=== PATIENT | male | born 1970 | race Two or more races ===

== ENCOUNTER → 2024-09-20 | Outpatient (CLI) | payer MEDICAID, SELFPAY ==
--- NOTE | 2024-09-20 08:00 | XR_ITS ---
Examination: CT left shoulder, without contrast. 2-D sagittal reconstructions. 2-D coronal reconstructions. 3-D reconstructions. Date and time of exam:September 20, 2024 at 0818 hours INDICATIONS: Softball injury to the shoulder 15 years ago, shoulder pain CTDI: vol (mGy):20.1 DLP: (mGycm):451 Technique: Multiple 1.25 mm axial sections of the left shoulder without intravenous contrast have been obtained. 2-D sagittal and coronal reconstructions have been obtained. 3-D reconstructions have been obtained. Low dose protocols were performed. One or more of the following dose reduction techniques were used; automated exposure control, adjustment of the mA and/or KV according to patient size, use of iterative reconstruction technique. Findings: Mild osteoarthritis glenohumeral joint 4 mm ossified joint body at the anterior aspect of the glenohumeral joint There is no disruption of the bicipital groove No shoulder dislocation No AC joint separation Distance between the humeral head in the acromium is 7 mm No opaque foreign body. IMPRESSION: Mild osteoarthritis glenohumeral joint. 4 mm ossified joint body at the anterior aspect of the glenohumeral joint Given patient's presentation, consider MRI shoulder follow-up to assess for rotator cuff or labral tear, as clinically warranted
== END | disposition home or self-care (01) ==
LOC: CCTX 07:34
PROVIDERS: Referring Provider Orthopaedic Surgery Sports Medicine; Visit Provider Orthopaedic Surgery Sports Medicine
DX: M19.012 Primary osteoarthritis, left shoulder (principal)
CPT/HCPCS: 73200

== ENCOUNTER 2025-09-23 11:40 | Day surgery (SDC) | payer MEDICAID, SELFPAY ==
--- NOTE | 2025-09-20 06:00 | EKG_ITS ---
[facility] Test Date: 2025-09-20 Pat Name: SHANIKA CERON Department: Room: - Gender: Male [employer]: NIVIA : 1970 Requested By: Braeden Arce Order Number: [id number] Reading MD: Braeden Arce Measurements Intervals [place] Rate: 86 P: 35 RI: 151 QRS: 9 QRSD: 90 T: 47 QT: 359 QTc: 430 Interpretive Statements SINUS RHYTHM No previous ECG available for comparison /[id number]/[id number]
[2025-09-20 13:09] LABS: Basophils # (Auto) 0.1 Thou/mm3 (0.0-0.2); Basophils % (Auto) 1 % (0-2.5); Eosinophils # (Auto) 0.4 Thou/mm3 (0.0-0.5); Eosinophils % (Auto) 3 % (0-10); Hematocrit 47.6 % (41.0-53.0); Hemoglobin 15.2 g/dL (13.5-16.0); Immature Granulocytes Auto 0.06 Thou/mm3 (0.00-0.00); Lymphocytes # (Auto) 2.3 Thou/mm3 (1.0-4.8); Lymphocytes % (Auto) 20 % (10-50); Mean Corpuscular HGB Conc 31.9 g/dl (31.0-37.0); Mean Corpuscular Hemoglobin 28.0 pg (25.0-35.0); Mean Corpuscular Volume 88 fL (80-100); Monocytes # (Auto) 0.7 Thou/mm3 (0.0-0.8); Monocytes % (Auto) 6 % (0-12); Neutrophils # (Auto) 8.0 Thou/mm3 (1.8-7.7); Neutrophils % (Auto) 70 % (37-80); Nucleated Red Blood Cell # 0.00 Thou/mm3 (0.00-0.00); Nucleated Red Blood Cell % 0 /100 WBC (0); Platelet Count 199 Thou/mm3 (140-440); RDW Standard Deviation 42.1 fL (35.1-43.9); Red Blood Count 5.43 Miln/mm3 (4.50-5.90); White Blood Count 11.4 Thou/mm3 (3.8-10.6)
[2025-09-20 13:20] LABS: Alanine Aminotransferase 26 U/L (10-49); Albumin, Serum 4.4 gm/dL (3.5-5.0); Albumin/Globulin Ratio 1.3 (1.2-2.2); Alkaline Phosphatase 110 U/L (46-116); Anion Gap 7 (7-16); Aspartate Amino Transferase 25 U/L (0-34); BUN/Creatinine Ratio 9 Ratio (12-20); Bilirubin,Total 1.0 mg/dL (0.3-1.2); Blood Urea Nitrogen 11 mg/dL (9-23); Calcium 9.0 mg/dL (8.3-10.6); Calcium (Corrected) 9.0 mg/dL (8.5-10.1); Carbon Dioxide 30.5 mMol/L (20.0-31.0); Chloride 106 mMol/L (98-107); Creatinine (Component) 1.2 mg/dL (0.6-1.3); Globulin 3.4 gm/dL (2.3-3.5); Glucose 113 mg/dL (74-106); Osmolality,Calculated 285 (275-295); Potassium 4.2 mMol/L (3.4-5.1); Sodium 143 mMol/L (136-145); Total Protein 7.8 gm/dL (5.7-8.2); eGFR > 60 See Note
[2025-09-20 13:25] LABS: INR 1.0 (0.9-1.3); Partial Thromboplastin Time 25.7 Seconds (22.0-36.0); Prothrombin Time 10.5 Seconds (9.0-12.2)
[2025-09-23 12:38] VITALS: BP 156/106; PULSE 79; RESP 18; TEMP 36.3; O2SAT 95; BMI 54.1
[2025-09-23] MEDS: RINGERS LACTATED 1000 ML 1,000 ML 20 ML IV (13:19)
[2025-09-23 13:55] VITALS: BP 149/87; PULSE 95; RESP 20; TEMP 36.6; O2SAT 95
[2025-09-23 14:05] VITALS: BP 135/107; PULSE 82; RESP 17; O2SAT 98
[2025-09-23 14:15] VITALS: BP 133/87; PULSE 85; RESP 13; O2SAT 99
[2025-09-23 14:25] VITALS: BP 136/92; PULSE 82; RESP 12; O2SAT 98
== END 2025-09-23 14:30 | disposition home or self-care (01) ==
PROVIDERS: Anesthesiology; PCP Family Medicine; Referring Provider Surgery; Visit Provider Surgery
PROC: 0DJD8ZZ Inspection of Lower Intestinal Tract, Via Natural or Artificial Opening Endoscopic (ICD-10-PCS; CPT 45378; principal; 2025-09-23 13:00)
DX: Z12.11 Encounter for screening for malignant neoplasm of colon (principal); Z01.810 Encounter for preprocedural cardiovascular examination; E66.01 Morbid (severe) obesity due to excess calories; Z68.43 Body mass index [BMI] 50.0-59.9, adult; I10 Essential (primary) hypertension; Z79.899 Other long term (current) drug therapy
CPT/HCPCS: 45378; 36415; 80053; 85025; 85610; 85730; 93005; A4649; J2250; J2704; J2765; J3010; J7120